=== PATIENT | male | born 1960 | race Caucasian/White ===

== ENCOUNTER → 2023-01-03 | Outpatient (CLI) | payer OTHER | LOC: M SOG 08:22 | PROVIDERS: ATTEND Orthopaedic Surgery Hand Surgery | DX: M79.644 Pain in right finger(s) (principal); M79.645 Pain in left finger(s) ==

== ENCOUNTER → 2023-02-08 | Outpatient (CLI) | payer OTHER ==
[~2023-02-08] MED LIST: AMLO1TAB25 PO; IRBE300T7 PO; ROSU10TA6 PO
== END ==
LOC: M LABSMTC 10:54
PROVIDERS: ATTEND Anesthesiology
DX: Z20.828 Contact with and (suspected) exposure to other viral communicable diseases (principal)

== ENCOUNTER 2023-02-13 05:58 | Day surgery (SDC) | payer OTHER ==
[~2023-02-13] VITALS: Ht 172.7 cm; Wt 91.2 kg
[2023-02-13] MEDS ORDERED: LR 1,000 ML IV SCH ×2 (06:40→09:20)
[2023-02-13] MEDS ORDERED: BUPIVACAINE HCL 0.25% 30ML VIAL As Ordered ONE (07:15)
[2023-02-13] MEDS ORDERED: ceFAZolin 2 GM/D5W 50 ML IV BAG As Ordered ONE (07:37)
[2023-02-13] MEDS ORDERED: ACETAMINOPHEN 1000MG 100ML IV BAG As Ordered ONE (07:54)
[2023-02-13] MEDS ORDERED: SUCCINYLCHOLINE 100MG/5ML SYRINGE As Ordered ONE (08:08)
[2023-02-13] MEDS ORDERED: GLYCOPYRROLATE INJ 0.2 MG/ML 2 ML VIAL As Ordered ONE (08:22)
[2023-02-13] MEDS ORDERED: propofoL 200 MG/20 ML VIAL As Ordered ONE ×2 (08:23→08:26)
[2023-02-13] MEDS ORDERED: ePHEDrine SULFATE 25 MG/5 ML(5MG/ML) SYRINGE As Ordered ONE (08:25)
[2023-02-13] MEDS ORDERED: fentaNYL 100 MCG/2 ML INJECTION As Ordered ONE (08:26)
[2023-02-13] MEDS ORDERED: MIDAZOLAM INJ 2MG/2ML VIAL As Ordered ONE (08:26)
[2023-02-13] MEDS ORDERED: LIDOCAINE 2% 100MG/5ML SDV (FOR ANES.) As Ordered ONE (08:26)
[2023-02-13] MEDS ORDERED: ONDANSETRON 4MG 2ML VIAL As Ordered ONE (08:26)
[2023-02-13] MEDS ORDERED: KETOROLAC 60MG 2ML VIAL As Ordered ONE (08:46)
[2023-02-13] MEDS ORDERED: BACITRACIN OINTMENT 30GM TUBE As Ordered ONE (08:58)
[2023-02-13] MEDS ORDERED: HYDROmorphone HCL 2MG/ML 1ML VIAL As Ordered ONE (09:08)
[2023-02-13] MEDS ORDERED: HYDROMORPHONE HCL 0.5 MG/ 0.5 ML SYRINGE IV PRN (09:20)
[2023-02-13] MEDS ORDERED: ONDANSETRON 4MG 2ML VIAL IV PRN (09:20)
[2023-02-13] MEDS ORDERED: oxyCODONE 5MG TAB PO PRN (09:20)
[2023-02-13] MEDS ORDERED: fentaNYL 100 MCG/2 ML INJECTION IV PRN (09:20)
[2023-02-13] MEDS ORDERED: PERC5TAB12 PO (09:28)
[2023-02-13 11:10] VITALS: BP 136/86
== END 2023-02-13 11:20 | disposition home or self-care (01) ==
LOC: M SDC 05:58
PROVIDERS: ATTEND Orthopaedic Surgery Hand Surgery
DX: M18.12 Unilateral primary osteoarthritis of first carpometacarpal joint, left hand (principal); I10 Essential (primary) hypertension; E78.00 Pure hypercholesterolemia, unspecified; F17.220 Nicotine dependence, chewing tobacco, uncomplicated; Z79.899 Other long term (current) drug therapy; Z88.0 Allergy status to penicillin
CPT/HCPCS: 25447; 76000; 88304; 88311; C1713; J0131; J0330; J0690; J1100; J1170; J1885; J2250; J2405; J3010; S0020

== ENCOUNTER → 2023-02-21 | Outpatient (CLI) | payer MEDICARE, OTHER ==
[~2023-02-21] MED LIST changes: +PERC5TAB12 PO
== END ==
LOC: M SOG 07:56
PROVIDERS: ATTEND Physician Assistant
DX: M17.12 Unilateral primary osteoarthritis, left knee (principal)

== ENCOUNTER → 2023-03-23 | Outpatient (CLI) | payer OTHER | LOC: M SOG 07:57 | PROVIDERS: ATTEND Physician Assistant | DX: Z47.89 Encounter for other orthopedic aftercare (principal); M18.12 Unilateral primary osteoarthritis of first carpometacarpal joint, left hand ==

== ENCOUNTER 2025-05-29 08:06 | Day surgery (SDC) | payer MEDICARE, OTHER ==
[~2025-05-29] VITALS: Ht 172.7 cm; Wt 92.8 kg
[~2025-05-29 08:06] MED LIST changes: +IRBE300T25 PO; -IRBE300T7 PO; +MIDAZOLAM INJ 2 MG/2 ML VIAL As Ordered ONE; +PHENYLEPHRINE 10% OPHTH SOL 5ML OD PRN; -ROSU10TA6 PO; +ROSU10TA61 PO
[2025-05-29] MEDS: OFLOXACIN 0.3 % (OCUFLOX) OPTH SOL 5ML OD ONE (08:40)
[2025-05-29] MEDS: PHENYLEPHRINE 2.5% OPHTH SOL 2ML OD SCH (08:41)
[2025-05-29] MEDS: CYCLOPENTOLATE 1% OPHTH SOLN 2 ML BTL OD SCH (08:41)
[2025-05-29] MEDS: LIDOCAINE 3.5% 1 ML OPHTH TOPICAL GEL OU ONE (08:41)
[2025-05-29] MEDS: TROPICAMIDE 1% OPHTH SOLN 15ML OD SCH (08:41)
[2025-05-29] MEDS: LIDOCAINE 1% SDV 5 ML VIAL As Ordered ONE (09:38)
[2025-05-29] MEDS: BSS IRRIG/VANCO(10MG)/TOBRA(5MG)/EPINEPH(1:1000-0.5CC)500ML BAG-ORONLY As Ordered ONE (09:39)
[2025-05-29] MEDS: CEFUROXIME 1 MG/0.1 ML INTRACAMERAL INJ As Ordered ONE (09:39)
[2025-05-29 09:53] VITALS: BP 130/86; TEMP 97.6; O2SAT 97
== END 2025-05-29 10:23 | disposition home or self-care (01) ==
LOC: M SDC 08:06
PROVIDERS: ATTEND Ophthalmology
DX: H25.11 Age-related nuclear cataract, right eye (principal); I10 Essential (primary) hypertension; E78.00 Pure hypercholesterolemia, unspecified; J45.909 Unspecified asthma, uncomplicated; Z79.899 Other long term (current) drug therapy; F17.220 Nicotine dependence, chewing tobacco, uncomplicated; Z88.0 Allergy status to penicillin
CPT/HCPCS: 66984; J0697; J2250; J3010; V2788